=== PATIENT | male | born 1950 | race Caucasian/White ===

== ENCOUNTER 2018-08-25 13:31 | Emergency (ER) | payer MEDICARE ==
[2018-08-25] MEDS ORDERED: SODIUM CHLORIDE 0.9% 500 ML IV STA (13:59)
[2018-08-25] MEDS ORDERED: VANCOMYCIN 2,000 MG in SODIUM CHLORIDE 0.9% 250 ML IVPB STA (14:01)
[2018-08-25] MEDS ORDERED: VANCOMYCIN 2,000 MG in SODIUM CHLORIDE 0.9% 500 ML 500 ML IVPB STA (14:03)
--- NOTE | 2018-08-25 14:07 | ED ---
General Adult HPI - General Chief complaint: Recheck/Abnormal Lab/Rx Stated complaint: Foot pain/swelling Source: patient Mode of arrival: wheelchair Limitations: no limitations - History of Present Illness Initial comments: Dictation was produced using [employer] dictation software. please excuse any grammatical, word or spelling errors. Chief Complaint: 68-year-old male with no known medical problems presents with right heart border. History of Present Illness: Patient is a 68-year-old male he denies any medical problems. Patient however has not seen a doctor approximately 30 years. He was seen at urgent care for worsening lower extremity wound. Patient reports that he spontaneously noted this wound approximately 4-5 days ago. States that the wound began around his anterior foot and progressed over the next 2-3 days up to his mid foot area. Patient does report pain however he is still able to bear weight on the foot. Patient denies any constitutional symptoms. He was seen at urgent care where he was told to emergency department for evaluation. Patient also reports worsening shortness of breath. Patient denies any pulmonary or cardiac disease to treat his shortness of breath 2. Denies any chest pain. The ROS documented in this emergency department record has been reviewed and confirmed by me. Those systems with pertinent positive or negative responses have been documented in the HPI. All other systems are other negative and/or noncontributory. PHYSICAL EXAM: General Impression: Alert and oriented x3, not in acute distress HEENT: Normocephalic atraumatic, extra-ocular movements intact, pupils equal and reactive to light bilaterally, mucous membranes moist. Cardiovascular: Heart regular rate and rhythm, S1&S2 audible, no murmurs, rubs or gallops Chest: Lungs clear to auscultation bilaterally, no rhonchi, no wheeze, no rales Abdomen: Bowel sounds present, abdomen soft, non-tender, non-distended, no organomegaly Musculoskeletal: Pulses present and equal in all extremities, no peripheral edema Motor: no focal deficits noted Neurological: CN II-XII grossly intact, no focal motor or sensory deficits noted Left lower extremity: Diffuse erythema from the knee down to the foot worse on the foot. There is a superficial malodorous lesion to the anterior midfoot extending down to between the first and second toe. He has diminished pulses. There is also increased swelling and edema to the foot area. There is blurred margins. Psych: Normal affect and mood ED course: 68-year-old male presents with clinical presentation consistent with left lower extremity infection. Signs upon arrival shows heart rate of 150, respiratory 28, blood pressure 202/94, rest of vital signs within acceptable limits. Clinical presentation concerning for necrotizing fasciitis. Laboratory evaluation obtained. Leukocytosis 13.3. Rest of CBC is grossly unremarkable. Coag panel unremarkable. Metabolic panel was obtained showing hyponatremia 134. Patient has a elevation BUN of 26. Glucose 296, lactic acidosis of 2.2. Computed tomography scan of the lower extremities obtained showing soft tissue gas formation in the left lower foot. Patient started on vancomycin, clindamycin and Zosyn. General surgery was contacted immediately. Dr. Zapien was compensation associate for general surgery. She is told that there is clinical presentation concerning for necrotizing fasciitis. She did not fill comfortable dealing with this foot. She recommended that we contact vascular surgery. Dr. Blanco was contacted. He evaluated patient at bedside immediately. He told patient that he would need to have lower extremity amputation. Patient was not satisfied with that option given that he would like to have an attempt to save t he leg. Dr. Blanco recommended transferring patient to tertiary care facility for second opinion. Patient consented to being transferred to [facility] for further intervention. Patient case discussed with Dr. Mcclellan from [facility] who was willing to accept the transfer. EKG interpretation: Ventricular rate 111, sinus tachycardia, ND interval 134, Q is 98, QTC 473. No ND prolongation, no QTC prolongation, no ST or T-wave changes noted. No old EKG for comparison Overall, this EKG is unremarkable - Related Data Home Medications Medication Instructions Recorded Confirmed No Known Home Medications 08/25/18 08/25/18 Allergies Allergy/AdvReac Type Severity Reaction Status Date / Time No Known Allergies Allergy Verified 08/25/18 13:48 Review of Systems ROS Statement: Those systems with pertinent positive or pertinent negative responses have been documented in the HPI. ROS Other: All systems not noted in ROS Statement are negative. Past Medical History Past Medical History: No Reported History History of Any Multi-Drug Resistant Organisms: None Reported Past Surgical History: Hernia Repair Past Psychological History: No Psychological Hx Reported Smoking Status: Never smoker Past Alcohol Use History: None Reported Past Drug Use History: None Reported General Exam Limitations: no limitations Course Vital Signs 08/25/18 08/25/18 13:39 15:38 Temperature 99.2 F 102.5 F H Pulse Rate 115 H 112 H Respiratory 28 H 20 Rate Blood Pressure 202/94 214/116 O2 Sat by Pulse 96 93 L Oximetry Medical Decision Making - Lab Data Result diagrams: 08/25/18 14:20 08/25/18 14:20 Lab Results 08/25/18 08/25/18 08/25/18 Range/Units 14:20 14:20 14:20 WBC 13.3 H (3.8-10.6) k/uL RBC 4.65 (4.30-5.90) m/uL Hgb 12.9 L (13.0-17.5) gm/dL Hct 41.1 (39.0-53.0) % MCV 88.4 (80.0-100.0) fL MCH 27.7 (25.0-35.0) pg MCHC 31.4 (31.0-37.0) g/dL RDW 15.1 (11.5-15.5) % Plt Count 321 (150-450) k/uL Neutrophils % 87 % Lymphocytes % 5 % Monocytes % 6 % Eosinophils % 0 % Basophils % 0 % Neutrophils # 11.6 H (1.3-7.7) k/uL Lymphocytes # 0.7 L (1.0-4.8) k/uL Monocytes # 0.7 (0-1.0) k/uL Eosinophils # 0.0 (0-0.7) k/uL Basophils # 0.0 (0-0.2) k/uL PT (9.0-12.0) sec INR (<1.2) Sodium 134 L (137-145) mmol/L Potassium 4.3 (3.5-5.1) mmol/L Chloride 100 (98-107) mmol/L Carbon Dioxide 22 (22-30) mmol/L Anion Gap 12 mmol/L BUN 26 H (9-20) mg/dL Creatinine 1.17 (0.66-1.25) mg/dL Est GFR (CKD-EPI)AfAm 74 (>60 ml/min/1.73 sqM) Est GFR (CKD-EPI)NonAf 64 (>60 ml/min/1.73 sqM) Glucose 296 H (74-99) mg/dL Plasma Lactic Acid Dashawn 2.2 H* (0.7-2.0) mmol/L Calcium 8.6 (8.4-10.2) mg/dL Magnesium 2.3 (1.6-2.3) mg/dL Total Bilirubin 1.1 (0.2-1.3) mg/dL AST 39 (17-59) U/L ALT 40 (21-72) U/L Alkaline Phosphatase 212 H (38-126) U/L Creatine Kinase 241 H (55-170) U/L Troponin I (0.000-0.034) ng/mL NT-Pro-B Natriuret Pep pg/mL Total Protein 6.3 (6.3-8.2) g/dL Albumin 3.5 (3.5-5.0) g/dL 08/25/18 08/25/18 08/25/18 Range/Units 14:20 14:20 14:20 WBC (3.8-10.6) k/uL RBC (4.30-5.90) m/uL Hgb (13.0-17.5) gm/dL Hct (39.0-53.0) % MCV (80.0-100.0) fL MCH (25.0-35.0) pg MCHC (31.0-37.0) g/dL RDW (11.5-15.5) % Plt Count (150-450) k/uL Neutrophils % % Lymphocytes % % Monocytes % % Eosinophils % % Basophils % % Neutrophils # (1.3-7.7) k/uL Lymphocytes # (1.0-4.8) k/uL Monocytes # (0-1.0) k/uL Eosinophils # (0-0.7) k/uL Basophils # (0-0.2) k/uL PT 11.0 (9.0-12.0) sec INR 1.0 (<1.2) Sodium (137-145) mmol/L Potassium (3.5-5.1) mmol/L Chloride (98-107) mmol/L Carbon Dioxide (22-30) mmol/L Anion Gap mmol/L BUN (9-20) mg/dL Creatinine (0.66-1.25) mg/dL Est GFR (CKD-EPI)AfAm (>60 ml/min/1.73 sqM) Est GFR (CKD-EPI)NonAf (>60 ml/min/1.73 sqM) Glucose (74-99) mg/dL Plasma Lactic Acid Dashawn (0.7-2.0) mmol/L Calcium (8.4-10.2) mg/dL Magnesium (1.6-2.3) mg/dL Total Bilirubin (0.2-1.3) mg/dL AST (17-59) U/L ALT (21-72) U/L Alkaline Phosphatase (38-126) U/L Creatine Kinase (55-170) U/L Troponin I 0.022 (0.000-0.034) ng/mL NT-Pro-B Natriuret Pep 1390 pg/mL Total Protein (6.3-8.2) g/dL Albumin (3.5-5.0) g/dL Critical Care Time Critical Care Time: Yes Total Critical Care Time: 31 Disposition Clinical Impression: Soft tissue infection Disposition: OTHER INSTITUTION NOT DEFINED Condition: Critical Referrals: None,Stated [Primary Care Provider] - 1-2 days Time of Disposition: 16:38 - Out of Hospital Transfer - Req. Specs Out of Hospital Transfer - Requested Specifics: Other Emergency Center ([facility])
[2018-08-25 14:46] LABS: Basophils % (A) 0 %; Eosinophils % (A) 0 %; HCT 41.1 % (39.0-53.0); HGB 12.9 gm/dL (13.0-17.5); Lymphocytes # (A) 0.7 k/uL (1.0-4.8); Lymphocytes % (A) 5 %; MCH 27.7 pg (25.0-35.0); MCHC 31.4 g/dL (31.0-37.0); MCV 88.4 fL (80.0-100.0); Mean Platelet Volume 7.4; Monocytes # (A) 0.7 k/uL (0-1.0); Monocytes % (A) 6 %; Neutrophils # (A) 11.6 k/uL (1.3-7.7); Neutrophils % (A) 87 %; Platelet Count 321 k/uL (150-450); RBC 4.65 m/uL (4.30-5.90); RDW 15.1 % (11.5-15.5); WBC 13.3 k/uL (3.8-10.6)
[2018-08-25 14:55] LABS: Albumin 3.5 g/dL (3.5-5.0); Calcium 8.6 mg/dL (8.4-10.2); Magnesium 2.3 mg/dL (1.6-2.3); Potassium 4.3 mmol/L (3.5-5.1); Total Bilirubin 1.1 mg/dL (0.2-1.3); Total Protein 6.3 g/dL (6.3-8.2)
[2018-08-25] MEDS ORDERED: ACETAMINOPHEN TAB 500 MG TAB PO STA (15:49)
[2018-08-25] MEDS ORDERED: PIPERACILLIN-TAZOBACTAM 3.375 GM in SODIUM CHLORIDE 0.9% 100 ML IVPB STA (15:52)
[2018-08-25] MEDS ORDERED: CLINDAMYCIN 900 MG in DEXTROSE 5% IN WATER 50 ML IVPB STA ×2 (15:52)
--- NOTE | 2018-08-25 16:08 | CT ---
EXAMINATION TYPE: CT lower extremity LT w con DATE OF EXAM: 08/25/2018 COMPARISON: None HISTORY: 68-year-old male with pain, Redness and swelling to foot, extending up to below knee. TECHNIQUE: Contiguous axial scanning of the left leg performed with IV Contrast, patient injected wit h 100 mL of Isovue 300. Coronal/sagittal reconstructions performed. 3-D reconstructions generated on a dedicated independent workstation. CT DLP: 323 mGycm Automated exposure control for dose reduction was used. FINDINGS: The football scout image shows asymmetric soft tissue swelling and likely enlargement compared to the contrala teral side. Trace knee joint effusion. Marked generalized subcutaneous soft tissue swelling in the leg. No deep fascial edema within the rig ht. No discrete fluid collection is seen. Degenerative changes at the ankle. 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 Degenerative changes along the middle subtalar joint a nd dorsal midfoot. Moderate sized plantar calcaneal spur. Extensive soft tissue swelling extends throughout the foot. There is subcutaneous air along the dorsu m of the forefoot and midfoot and lesser degree of subcutaneous emphysema along the plantar aspect of the forefoot and midfoot tracking along the plantar fascia. IMPRESSION: 1. EXTENSIVE SUBCUTANEOUS SOFT TISSUE SWELLING AND EDEMA INVOLVING THE LEG AND FOOT CONCERNING FOR [place] CELLULITIS. 2. WITHIN THE FOREFOOT AND MIDFOOT, THERE IS SOFT TISSUE GAS BOTH DORSALLY AND ALONG THE PLANTAR SURF DEANDRE. SOME OF THE GAS EXTENDS ALONG THE PLANTAR FASCIA. CORRELATE FOR SEVERE CELLULITIS WITH GAS FORMI NG ORGANISM. EARLY NECROTIZING FASCIITIS DIFFICULT TO EXCLUDE. 3. NO DEEP FASCIAL EDEMA OR SOFT TISSUE GAS WITHIN THE LEG TO SUPPORT NECROTIZING FASCIITIS HIGHER UP .
--- NOTE | 2018-08-25 16:17 | XR ---
EXAMINATION TYPE: XR chest 2V DATE OF EXAM: 08/25/2018 COMPARISON: None HISTORY: 68-year-old male for infection and high blood pressure, pain TECHNIQUE: AP and lateral views FINDINGS: Heart mildly enlarged. Diffuse interstitial prominence. Hyperinflation. No sandra consolidation or ple ural effusion. IMPRESSION: COPD with prominent interstitial prominence, possible superimposed bronchitis or asthma. No focal inf iltrate seen.
[2018-08-25 17:26] VITALS: RESP 18; TEMP 100.4
[2018-08-25 17:57] VITALS: BP 210/110; PULSE 110
== END 2018-08-25 18:03 | disposition short-term general hospital (02) ==
LOC: EC 13:31
DX: L08.9 Local infection of the skin and subcutaneous tissue, unspecified (principal); R00.0 Tachycardia, unspecified; D72.829 Elevated white blood cell count, unspecified; E87.1 Hypo-osmolality and hyponatremia; R79.89 Other specified abnormal findings of blood chemistry; E87.2 Acidosis; R06.02 Shortness of breath
CPT/HCPCS: 36415; 93005; 83880; 80053; 82550; 83605; 83735; 84484; 85025; 85610; 87040; 71046; 73701; 99285; 96365; 96366; 96361; J3370; Q9967